=== PATIENT | female | born 1960 | race Caucasian/White ===

== ENCOUNTER 2020-07-19 09:00 | Emergency (ER) | payer OTHER ==
[~2020-07-19 09:00] MED LIST: BACTRIM DS TAB1 EACH PO; CLARITIN10 MG PO; HCTZ12.5 MG PO; K-DUR20 MEQ PO; LIPITOR20 MG PO; METFORMIN HCL500 MG PO; MOBIC7.5 MG PO; PERCOCET 5-3251 EACH PO; POTASSIUM CHLO10 MEQ PO; PROMETHEGA12.5 MG/SU PR; VANCOMYCIN500 MG IM/IV; VIBRAMYCIN100 MG PO; XARELTO10 MG PO; ZANTAC150 MG PO; ZOFRAN4 MG PO
[2020-07-19 10:44] LABS: BASOPHIL 0.2 % (0-2); EOSINOPHIL 0 % (0-5); HCT 42.6 % (37.0-47.0); HGB 14.2 g/dl (12.5-16.0); LYMPHOCYTE 14.2 % (15-48); MCH 32.5 pg (25.0-31.0); MCHC 33.3 g/dL (32.0-36.0); MCV 97.5 fL (78.0-100.0); MONOCYTE 9.5 % (0-12); MPV 9.6 fL (6.0-9.5); NRBC 0; PLT 273 K/uL (150-400); RBC 4.37 M/uL (4.20-5.40); RDW 12.6 % (11.5-14.0)
[2020-07-19] MEDS ORDERED: ROBITUSSIN W/COD5 ML PO (11:23)
[2020-07-19] MEDS ORDERED: LEVAQUIN750 MG PO (11:23)
== END 2020-07-19 12:05 | disposition home or self-care (01) ==
LOC: FER 09:00
PROVIDERS: Emergency Medicine
DX: J18.9 Pneumonia, unspecified organism (principal); I10 Essential (primary) hypertension; Z88.0 Allergy status to penicillin; Z88.1 Allergy status to other antibiotic agents; Z87.891 Personal history of nicotine dependence
CPT/HCPCS: 36415; 71046; 85025; 96372; J1040; J1885